=== PATIENT | male | born 1995 | race Caucasian/White ===

== ENCOUNTER 2022-08-08 17:40 | Emergency (ER) | payer OTHER ==
[~2022-08-08] VITALS: Ht 172.7 cm; Wt 61.2 kg
[2022-08-08 17:46] VITALS: BP 126/91
[2022-08-08] MEDS ORDERED: IBUP-2213 PO (20:02)
[2022-08-08 20:31] VITALS: BP 126/91
--- NOTE | 2022-08-08 20:31 | NUR ---
Patient discharged with v/s stable. Written and verbal after care instructions given and explained. New rx ibuprofen. Patient verbalized understanding. Ambulatory with steady gait. All questions addressed prior to discharge. Advised to follow up with PMD.
--- NOTE | 2022-08-08 20:31 | NUR ---
Pt seen and evaluated by ANNE-MARIE
== END 2022-08-08 20:31 | disposition home or self-care (01) ==
LOC: MED 17:40
DX: M79.662 Pain in left lower leg (principal); Z79.899 Other long term (current) drug therapy
CPT/HCPCS: 93971; 99284; Q0092